=== PATIENT | female | born 1960 | race Caucasian/White ===

== ENCOUNTER 2016-06-29 18:04 | Emergency (ER) | payer OTHER ==
[~2016-06-29] VITALS: Ht 165.1 cm; Wt 81.6 kg
[~2016-06-29 18:04] MED LIST: AMBIEN10 MG PO; ATARAX10 MG PO; EFFEXOR XR150 MG PO; KLOR-CON M2020 MEQ PO; MAXZIDE 37.5 M1 EACH PO; NAPROSYN500 MG PO; NEURONTIN100 MG PO; SYNTHROID112 MCG PO; ULTRAM50 MG PO; VENLAFAXINE HC150 MG PO; ZOCOR10 MG PO
== END 2016-06-29 19:20 | disposition short-term general hospital (02) ==
LOC: ER 18:04
PROC: 2W3BX1Z Immobilization of Left Upper Arm using Splint (ICD-10-PCS; principal; 2016-06-29)
DX: S52.125A Nondisplaced fracture of head of left radius, initial encounter for closed fracture (principal); W01.10XA Fall on same level from slipping, tripping and stumbling with subsequent striking against unspecified object, initial encounter

== ENCOUNTER → 2016-06-30 | Outpatient (CLI) | payer OTHER | END | disposition short-term general hospital (02) | LOC: CLORTH 10:34 | DX: S52.125A Nondisplaced fracture of head of left radius, initial encounter for closed fracture (principal) ==

== ENCOUNTER → 2016-07-28 | Outpatient (CLI) | payer OTHER | END | disposition short-term general hospital (02) | LOC: CLORTH 12:02 | DX: S52.125D Nondisplaced fracture of head of left radius, subsequent encounter for closed fracture with routine healing (principal) ==

== ENCOUNTER → 2016-08-05 | Outpatient (CLI) | payer OTHER | END | disposition short-term general hospital (02) | LOC: CLRHEU 10:29 | DX: M79.7 Fibromyalgia (principal); R70.0 Elevated erythrocyte sedimentation rate ==